=== PATIENT | male | born 1995 | race Caucasian/White ===

== ENCOUNTER → 2016-09-30 | Outpatient (CLI) | payer BC ==
[~2016-09-30] MED LIST: Iopamidol 755 MG/ML 500 ML Multipack Bottle IVPUSH STA
--- NOTE | 2016-09-30 11:32 | CT ---
CT of the chest, abdomen and pelvis with contrast. HISTORY: Abnormal weight loss TECHNIQUE: Axial CT images were obtained of the chest, abdomen and pelvis following administration o f 100 mL of Isovue-370 in the right antecubital fossa without complication. Coronal and sagittal rec onstructions obtained. FINDINGS: Chest: The lungs are clear without focal consolidation. No pleural effusion or pneumothorax. The hea rt is normal in size without a pericardial effusion. No mediastinal, hilar, or axillary lymphadenopa thy. The thoracic aorta is normal in caliber. The main pulmonary arteries are patent. The central ai rways are clear. Trace residual thymic tissue within the anterior mediastinum. The thyroid appears n ormal. Abdomen: The liver, spleen, and pancreas appear normal. The adrenal glands appear grossly normal. Th e kidneys enhance and function symmetrically without evidence of obstructive uropathy. No bulky retr operitoneal lymphadenopathy or abdominal ascites. Pelvis: The large and small bowel are normal in caliber without evidence of obstruction. No pericolo imani inflammation or stranding. The appendix appears normal. No bulky pelvic lymphadenopathy or free pelvic fluid. Urinary bladder is mostly decompressed. There is a bone island within the left femoral head. No suspicious bone marrow signal changes identi fied. IMPRESSION: 1. No acute findings within the chest, abdomen, or pelvis. 2. No masses or abnormalities otherwise identified.
== END ==
LOC: MW.DI 08:23
PROVIDERS: ATTEND Allergy & Immunology
DX: R63.4 Abnormal weight loss (principal)
CPT/HCPCS: 71260; 74177; Q9967